=== PATIENT | female | born 2005 | race Two or more races ===

== ENCOUNTER 2025-08-11 16:36 | Emergency (ER) | payer BC, SELFPAY ==
[2025-08-11 16:39] VITALS: BMI 20.7
[2025-08-11 16:40] VITALS: BP 117/77; PULSE 55; RESP 18; TEMP 36.4; O2SAT 95
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
[2025-08-11] MEDS: ACETAMINOPHEN 325 MG TABLET 650 MG PO (18:59)
[2025-08-11] MEDS: IBUPROFEN TAB 400 MG TABLET PO (19:00)
== END 2025-08-11 19:15 | disposition home or self-care (01) ==
PROVIDERS: Emergency Provider Emergency Medicine
DX: S13.4XXA Sprain of ligaments of cervical spine, initial encounter (principal); S93.402A Sprain of unspecified ligament of left ankle, initial encounter; S09.90XA Unspecified injury of head, initial encounter; V43.51XA Car driver injured in collision with sport utility vehicle in traffic accident, initial encounter; Y92.411 Interstate highway as the place of occurrence of the external cause
CPT/HCPCS: 70450; 72040; 72125; 73600; 99283; A9270